=== PATIENT | female | born 1945 | race Caucasian/White ===

== ENCOUNTER 2018-04-23 21:21 | Inpatient (IN) | payer MEDICARE, MEDICAID ==
[2018-04-23 22:27] LABS: ABSOLUTE LYMPHOCYTES (AUTO) 1.4 10^3/uL (0.5-4.7); ABSOLUTE MONOCYTES (AUTO) 0.9 10^3/uL (0.1-1.4); ABSOLUTE NEUT (AUTO) 13.4 10^3/uL (1.7-8.2); BASOPHILS % (AUTO) 0.3 % (0-2); EOSINOPHILS % (AUTO) 0.2 % (0-6); HEMATOCRIT 47.8 % (36.0-47.0); HEMOGLOBIN 16.2 g/dL (12.0-15.5); LYMPHOCYTES % (AUTO) 8.9 % (13-45); MEAN CORPUSCULAR HEMOGLOBIN 30.3 pg (27.0-33.4); MEAN CORPUSCULAR VOLUME 89 fl (80-97); MONOCYTES % (AUTO) 5.5 % (3-13); PLATELET COUNT 236 10^3/uL (150-450); RED BLOOD COUNT 5.37 10^6/uL (3.72-5.28); RED CELL DISTRIBUTION WIDTH 13.5 % (11.5-14.0); SEGMENTED NEUTROPHILS % (AUTO) 85.1 % (42-78); TOTAL CELLS COUNTED % (AUTO) 100 %; WHITE BLOOD COUNT 15.8 10^3/uL (4.0-10.5)
[2018-04-23 22:40] LABS: ALANINE AMINOTRANSFERASE 26 U/L (9-52); ALBUMIN 4.9 g/dL (3.5-5.0); ALKALINE PHOSPHATASE 72 U/L (38-126); ANION GAP 19 (5-19); ASPARTATE AMINO TRANSFERASE 24 U/L (14-36); BILIRUBIN,DIRECT 0.6 mg/dL (0.0-0.4); BLOOD UREA NITROGEN 24 mg/dL (7-20); CALCIUM 10.3 mg/dL (8.4-10.2); CARBON DIOXIDE 25 mmol/L (22-30); CHLORIDE 103 mmol/L (98-107); GLUCOSE 143 mg/dL (75-110); LIPASE 73.9 U/L (23-300); POTASSIUM 4.4 mmol/L (3.6-5.0); SODIUM 146.9 mmol/L (137-145); TOTAL PROTEIN 8.5 g/dL (6.3-8.2)
[2018-04-23] MEDS ORDERED: PROMETHAZINE HCL INJ 25 MG/1 ML VIAL IV ONE (23:33)
[2018-04-23] MEDS ORDERED: HYDROMORPHONE HCL INJ/PF 2 MG/ML AMPULE IV ONE (23:37)
--- NOTE | 2018-04-23 23:41 | ER Document Report ---
ED General - General Chief Complaint: Nausea/Vomiting Stated Complaint: VOMITING Time Seen by Provider: 04/23/18 23:36 TRAVEL OUTSIDE OF THE [place] IN LAST 30 DAYS: No - HPI Notes: 73-year-old female who presents with left-sided flank abdominal pain. Patient somewhat poor historian but indicates sometime around lunchtime she began to have nausea and vomited several times also developed left flank and left mid abdominal pain that radiates around to her right mid quadrant. No fever, chills or sweats. Sharp and severe pain at times. Continued nausea and vomiting. Sudden onset. No fever. No blood in her stool or vomitus. No diarrhea. No other modifying factors, no other associated symptoms, no other provocative or palliative factors. - Related Data Allergies/Adverse Reactions: No Known Allergies Allergy (Unverified 04/23/18 21:32) Past Medical History - Social History Smoking Status: Never Smoker Chew tobacco use (# tins/day): Yes - everyday Frequency of alcohol use: None Drug Abuse: None Family History: Reviewed & Not Pertinent Patient has suicidal ideation: No Patient has homicidal ideation: No - Medical History Notes: Reviewed, includes hypertension, thyroid disease Renal/ Medical History: Denies: Hx Peritoneal Dialysis Review of Systems - Review of Systems Notes: Review of systems as in the history of present illness, otherwise negative. Physical Exam - Vital signs Vitals: Temp Pulse BP Pulse Ox 98.4 F 88 178/91 H 98 04/23/18 22:05 04/23/18 22:05 04/23/18 22:05 04/23/18 22:05 - Notes Notes: General: Well developed . Moderate distress HEENT: Normocephalic, atraumatic. Pupils equal round reactive to light. No JVD. Dry mucosa Chest: No trauma. Respiratory: Good air exchange, normal excursion. Cardiac: Regular rhythm. No murmurs or gallops. Abdomen: Soft, mild left mid quadrant tenderness. Back: No asymmetry or gross abnormality. Motor: Grossly normal power and tone. Neurologic: Alert, nonfocal. Cranial nerves II-12 are intact. Sensation intact. Vascular: Well perfused. Normal peripheral pulses. Skin: No petechiae or purpura. Course - Re-evaluation Re-evalutation: 04/23/18 23:40 Elderly female who presents with abdominal and flank pain and vomiting. Consider Renal colic, diverticulitis, less likely abdominal ischemia. May be viral illness. May be cardiac or metabolic. Plan proceed with basic labs, fluids, antiemetics and analgesics, CT, reassess. 04/24/18 02:55 Labs reviewed, mild leukocytosis is noted. Urine is pending. Chemistries unremarkable. CT imaging shows a small distal ureteral stone on the left. Patient is resting comfortably. However, she has had some desaturation is now requiring oxygen via nasal cannula. On reexamination she shows some diffuse crackles bilaterally. Chest x-ray shows pulmonary vascular congestion but no significant cardiomegaly. This point we are going to let the patient's medications wear off, treat with supplemental oxygen and some additional IV Lasix. She will likely be able to be discharged in a few hours. 04/24/18 02:55 - Vital Signs Vital signs: Temp Pulse Resp BP Pulse Ox 98.4 F 88 121/66 91 L 04/23/18 22:05 04/23/18 22:05 04/24/18 01:01 04/24/18 01:02 - Laboratory Result Diagrams: 04/23/18 22:18 04/23/18 22:18 Laboratory results interpreted by me: 04/23/18 04/23/18 04/23/18 22:18 22:18 22:18 WBC 15.8 H RBC 5.37 H Hgb 16.2 H Hct 47.8 H Seg Neutrophils % 85.1 H Lymphocytes % 8.9 L Absolute Neutrophils 13.4 H PT 16.9 H Sodium 146.9 H BUN 24 H Glucose 143 H Calcium 10.3 H Direct Bilirubin 0.6 H Total Protein 8.5 H Urine Protein Urine Glucose (UA) Urine Ketones Urine Blood Urine Urobilinogen 04/24/18 02:58 WBC RBC Hgb Hct Seg Neutrophils % Lymphocytes % Absolute Neutrophils PT Sodium BUN Glucose Calcium Direct Bilirubin Total Protein Urine Protein 100 H Urine Glucose (UA) 50 H Urine Ketones 20 H Urine Blood LARGE H Urine Urobilinogen 2.0 H Discharge - Discharge Clinical Impression: Kidney stone Condition: Stable Disposition: HOME, SELF-CARE Instructions: Kidney Stone ([facility]) Prescriptions: Hydrocodone Bit/Acetaminophen [Hydrocodon-Acetaminophen 5-325] 1 each PO Q6 #12 tablet Ondansetron [Zofran Odt 4 mg Tablet] 1 - 2 tab PO Q4H PRN #15 tab.rapdis PRN Reason: For Nausea/Vomiting Referrals: DEREK LAWRENCE MD [Primary Care Provider] - Follow up as needed
[2018-04-23 23:49] LABS: INTERNATIONAL RATION (INR) 1.31; PROTHROMBIN TIME 16.9 SEC (11.4-15.4)
--- NOTE | 2018-04-24 02:01 | RADIOLOGY REPORT (SQ) ---
EXAM DESCRIPTION: CT ABDOMEN PELVIS WITH IV CONTRAST CLINICAL HISTORY: 73 years Female, Severe left flan flank and abd pain Comparison: None. Technique: IV contrast. Coronal and sagittal reformat. This exam was performed according to our departmental dose-optimization program, which includes automated exposure control, adjustment of the mA and/or kV according to patient size and/or use of iterative reconstruction technique.[facility]: Dose Right [facility]: CareDose [facility]: Dose Right [facility]: Teradose 4D [facility]: WyzeTalk LIMITATIONS: None. Findings: 0.5 cm left distal ureteral stone at the S3 level with moderate left hydronephrosis-hydroureter. Atherosclerosis. Cardiac leads. Coarse calcification associated with the cardiac, calcification and thinning of the left ventricular apex. Likely benign 1.2 cm low-attenuation right hepatic lesion. Gallstone. Likely benign 4.6 cm exophytic left renal cyst. Partially duplicated right renal collecting system. Normal appendix. No free fluid. Mild disc desiccation and spondylosis. Inferior thorax, pancreas, spleen, adrenals, gastrointestinal tract, pelvic organs, lymphatics, vasculature, and musculoskeleton appear otherwise unremarkable. IMPRESSION: 0.5 cm right distal ureteral stone with low grade obstruction.
--- NOTE | 2018-04-24 02:19 | RADIOLOGY REPORT (SQ) ---
EXAM DESCRIPTION: XR CHEST 1 VIEW CLINICAL HISTORY: 73 years Female, DYSPNEA COMPARISON: None. NUMBER OF VIEWS/TECHNIQUE: 1/AP FINDINGS: Adequate lung volume, pulmonary vascular congestion, normal cardiac silhouette, atherosclerosis, and intact bony thorax. Left cardiac stimulator with leads. IMPRESSION: Pulmonary vascular congestion.
[2018-04-24] MEDS ORDERED: FUROSEMIDE INJ/PF 40 MG/4 ML SDV IV ONE (02:48)
[2018-04-24 03:28] LABS: APPEARANCE,URINE SLIGHTLY-CLOUDY; BILIRUBIN,URINE NEGATIVE (NEGATIVE); COLOR,URINE YELLOW; GLUCOSE, URINE 50 mg/dL (NEGATIVE); KETONES,URINE 20 mg/dL (NEGATIVE); LEUKOCYTE ESTERASE,URINE NEGATIVE (NEGATIVE); NITRITE,URINE NEGATIVE (NEGATIVE); PROTEIN,URINE 100 mg/dL (NEGATIVE); URINE SPECIFIC GRAVITY 1.046
[2018-04-24] MEDS ORDERED: CEFTRIAXONE INJ 1000 MG VIAL IV ONE (05:47)
--- NOTE | 2018-04-24 07:20 | EKG REPORT ---
SEVERITY:- ABNORMAL ECG - SINUS RHYTHM NONSPECIFIC T ABNORMALITIES, LATERAL LEADS BORDERLINE PROLONGED QT INTERVAL : Confirmed by: Santi Johnson MD 24-Apr-2018 07:19:01
[2018-04-24] MEDS ORDERED: FENTANYL CITRATE INJ/PF 100 MCG/2 ML AMPUL ONE (08:58)
[2018-04-24] MEDS ORDERED: EPHEDRINE SULFATE INJ 50 MG/1 ML AMPULE ONE (08:58)
[2018-04-24] MEDS ORDERED: MIDAZOLAM 2 MG/2 ML INJ ONE (08:58)
[2018-04-24] MEDS ORDERED: PROPOFOL INJ 200 MG/20 ML VIAL IV ONE (08:59)
[2018-04-24] MEDS ORDERED: ALBUTEROL SULFATE 0.083% NEB 2.5 MG/3 ML AMPUL NEB PRN (09:07)
[2018-04-24] MEDS ORDERED: NORMAL SALINE 1000 ML 1,000 ML IV PRN ×3 (09:07→15:24)
[2018-04-24] MEDS ORDERED: ACETAMINOPHEN 325 MG TABLET PO PRN (09:07)
[2018-04-24] MEDS ORDERED: PROMETHAZINE HCL INJ 25 MG/1 ML VIAL IV PRN (09:13)
[2018-04-24] MEDS ORDERED: GLUCAGON,HUMAN RECOMB 1 MG INJ SUBCUT PRN (09:13)
[2018-04-24] MEDS ORDERED: MAG HYDROX/AL HYDROX/SIMETH SUSP 30 ML UDCUP PO PRN (09:13)
[2018-04-24] MEDS ORDERED: DEXTROSE 40% GEL 15 GM TUBE PO PRN ×2 (09:13)
[2018-04-24] MEDS ORDERED: DEXTROSE 50%-WATER 25 GM/50 ML DISP.SYRIN IV PRN ×2 (09:13)
[2018-04-24] MEDS ORDERED: KETOROLAC TROMETHAMINE INJ/PF 30 MG/1 ML SDV IV PRN (09:16)
[2018-04-24] MEDS ORDERED: OXYCODONE HCL IR 5 MG TABLET PO PRN (09:17)
[2018-04-24] MEDS ORDERED: LIDOCAINE 2% URO-JET 5 ML KIT ONE (09:39)
--- NOTE | 2018-04-24 10:59 | Operative Report ---
Operative Report DATE OF SURGERY: 04/24/18 Operative Report: Cystoscopy with placement of left ureteral stent and ureteroscopy with stent manipulation PREOPERATIVE DIAGNOSIS: Left mid ureteral stone with hydronephrosis POSTOPERATIVE DIAGNOSIS: Same OPERATION: Cystoscopy, placement of left ureteral stent, ureteroscopy and stent manipulation SURGEON: MACK LEON II ANESTHESIA: LMAC TISSUE REMOVED OR ALTERED: 0.8, 24 cm double-pigtail ureteral stent placed on the left PROCEDURE: The patient was taken to the operating room and placed into the supine position on the cystoscopy table. After adequate MAC anesthesia, she was placed into the lithotomy position and prepped and draped in the usual sterile fashion. Cystoscopy was carried out with a 23 [place] panendoscope in the left ureteral orifice visualized. The orifice was cannulated with a 0.035 sensor wire and advanced under fluoroscopic guidance into the left renal pelvis. A 4.824 cm double-pigtail stent was then placed over the wire and positioned in the left kidney. The stent was seen to curl in the upper pole calyx. There was a curl in the bladder and the Glidewire was then removed. As the bladder was drained it was noted that the stent retracted up into the distal ureter and the coil in the upper ureter was seen to be propelled cephalad. The stent grasper was not able to be placed in order to grasp the stent before it migrated into the distal ureter. Subsequently the ACMI ureteroscope was used to ureteroscope the distal ureter and the stent was visualized. It was grasped with a stone basket and under fluoroscopic guidance the stent was then manipulated into the renal pelvis proximally with a longer coiled within the bladder. The scope was removed and the stent stayed in place. The patient was returned to PACU in satisfactory condition. She tolerated procedure well.
--- NOTE | 2018-04-24 11:24 | RADIOLOGY REPORT (SQ) ---
EXAM DESCRIPTION: PYELOGRAM RETROGRADE COMPLETED DATE/TIME: 04/24/2018 11:11 am REASON FOR STUDY: LT STENT PLACEMENT I50.9 HEART FAILURE, UNSPECIFIED N13.30 UNSPECIFIED HYDRONEPH ROSIS COMPARISON: None. FLUOROSCOPY TIME: 2.38 seconds 1 images saved to PACS. TECHNIQUE: Intra-operative images acquired during surgical procedure to evaluate progress. NUMBER OF IMAGES: 1 LIMITATIONS: None. FINDINGS: An image obtained from fluoro shows a catheter in the left ureter with contrast injected. No definite intraluminal filling defect is seen. IMPRESSION: Retrograde pyelogram. Refer to operative note for further information. COMMENT: Quality ID [id number]: Final reports for procedures using fluoroscopy that document radiation exp osure indices, or exposure time and number of fluorographic images (if radiation exposure indices are not available) Please consult full operative report of the attending physician for description of the procedure. TECHNICAL DOCUMENTATION: JOB ID: [id number] [email or web address]- All Rights Reserved Reading location - IP/workstation name: [email or web address]
[2018-04-24] MEDS ORDERED: LIDOCAINE 2% INJ-PF (20 MG/ML) 2 ML AMPUL ONE (12:49)
[2018-04-24] MEDS ORDERED: INSULIN LISPRO 100 UNIT/ML 3 ML VIAL SUBCUT PRN (14:54)
--- NOTE | 2018-04-24 15:25 | PDOC H&P ---
History of Present Illness Admission Date/PCP: 04/24/18 06:22 DEREK LAWRENCE MD Patient complains of: Left flank pain History of Present Illness: AKILAH COONEY is a 73 year old female, who is a poor historian, but is able to confirm a past medical history of NC in 2006 with stents, pacemaker/AICD, hyperlipidemia and type 2 diabetes mellitus. Review of all medications suggest that she also has hypertension, hypothyroidism, GERD, and perhapse PAF (on ASA, coumadin, and BB therapy). Home medications, by report, include Coumadin, however, the patient is sub-therapeutic with an INR of 1.31 and the patient is unable to tell me if or why she would be on chronic anticoagulant therapy. The patient presented to the emergency room overnight with a complaint of sudden onset left flank pain radiating to her groin and associated with nausea and vomiting. Evaluation in the emergency department revealed WBC 15.8, hypernatremia with a sodium 146.9, elevated BUN at 24, urinalysis revealed UTI, pulmonary vascular congestion by chest x-ray, and a 5 mm distal left ureteral calculus causing moderate left hydronephrosis and hydroureter. Dr. Botello, urology, plans to place a ureteral stent this morning. She is referred to the hospitalist service for admission and management of urinary tract infection with hydronephrosis secondary to renal stone. Past Medical History Cardiac Medical History: Reports: Congestive Heart Failure, Myocardial Infarction, Hyperlipidema, Hypertension Pulmonary Medical History: Denies: Asthma, Chronic Obstructive Pulmonary Disease (COPD) EENT Medical History: Reports: None Neurological Medical History: Denies: Hemorrhagic CVA, Ischemic CVA Endocrine Medical History: Reports: Diabetes Mellitus Type 1, Hypothyroidism Renal/ Medical History: Denies: Chronic Kidney Disease, Nephrolithiasis Malignancy Medical History: Reports: None GI Medical History: Reports: Gastroesophageal Reflux Disease Musculoskeltal Medical History: Reports: None Skin Medical History: Reports: None Psychiatric Medical History: Reports: Tobacco Dependency Traumatic Medical History: Reports: None Hematology: Denies: Anemia Infectious Medical History: Reports: None Past Surgical History Past Surgical History: Reports: Section, Internal Defibrillator, Pacemaker Social History Information Source: Patient Smoking Status: Never Smoker Frequency of Alcohol Use: None Hx Recreational Drug Use: No Hx Prescription Drug Abuse: No - Advance Directive Resuscitation Status: Full Code Family History Family History: Patient was unable to recall family medical history. Parental Family History Reviewed: No - Pt can not recall family MHx Children Family History Reviewed: No Sibling(s) Family History Reviewed.: No Medication/Allergy Home Medications: Aspirin [Aspirin EC] 81 mg PO DAILY 04/24/18 Esomeprazole Magnesium [Nexium] 40 mg PO DAILY 04/24/18 Latanoprost [Xalatan] 1 drop OU QHS 04/24/18 Levothyroxine Sodium [Synthroid 50 Mcg Tablet] 50 mcg PO QAM 04/24/18 Metformin HCl [Metformin HCl ER] 500 mg PO DAILY 04/24/18 Metoprolol Tartrate [Lopressor 25 mg Tablet] 25 mg PO Q12 04/24/18 Montelukast Sodium [Singulair 10 mg Tablet] 10 mg PO DAILY 04/24/18 Multivit/Folic Acid/Vit K1 [One-A-Day Women's 50 Plus Tab] 1 each PO DAILY 04/24 Oxybutynin Chloride [Oxybutynin Chloride ER] 10 mg PO DAILY 04/24/18 Potassium Chloride [Klor-Con M20] 20 meq PO DAILY 04/24/18 Simvastatin [Zocor 40 mg Tablet] 40 mg PO QHS 04/24/18 Valsartan/Hydrochlorothiazide [Valsartan-Hctz 160-25 mg Tab] 1 each PO DAILY Warfarin Sodium [Coumadin 1 mg Tablet] 3 mg PO TUTHSA@1000 04/24/18 Warfarin Sodium [Coumadin 1 mg Tablet] 4 mg PO SUMOWEFR@1000 04/24/18 Allergies/Adverse Reactions: No Known Allergies Allergy (Unverified 04/23/18 21:32) Review of Systems Constitutional: ABSENT: chills, fever(s), headache(s), weight gain, weight loss Eyes: ABSENT: visual disturbances Ears: ABSENT: hearing changes Cardiovascular: ABSENT: chest pain, dyspnea on exertion, edema, orthropnea, palpitations Respiratory: ABSENT: cough, hemoptysis Gastrointestinal: PRESENT: abdominal pain - Left flank pain, nausea, vomiting. ABSENT: constipation, diarrhea, hematemesis, hematochezia Genitourinary: ABSENT: difficulty urinating, dysuria, hematuria Musculoskeletal: ABSENT: joint swelling Integumentary: ABSENT: rash, wounds Neurological: ABSENT: abnormal gait, abnormal speech, confusion, dizziness, focal weakness, syncope Psychiatric: ABSENT: anxiety, depression, homidical ideation, suicidal ideation Endocrine: ABSENT: cold intolerance, heat intolerance, polydipsia, polyuria Hematologic/Lymphatic: ABSENT: easy bleeding, easy bruising Physical Exam Vital Signs: Temp Pulse Resp BP Pulse Ox 98.9 F 88 150/89 H 94 04/24/18 06:27 04/23/18 22:05 04/24/18 06:00 04/24/18 08:00 General appearance: PRESENT: no acute distress, well-developed, well-nourished, other - Overweight Head exam: PRESENT: atraumatic, normocephalic Eye exam: PRESENT: conjunctiva pink, EOMI, PERRLA. ABSENT: scleral icterus Ear exam: PRESENT: normal external ear exam Mouth exam: PRESENT: moist, tongue midline Neck exam: ABSENT: carotid bruit, JVD, lymphadenopathy, thyromegaly Respiratory exam: PRESENT: clear to auscultation jonathan, symmetrical, unlabored, other - Supplemental oxygen via nasal cannula. ABSENT: rales, rhonchi, wheezes Cardiovascular exam: PRESENT: RRR, +S1, +S2. ABSENT: diastolic murmur, rubs, systolic murmur Pulses: PRESENT: normal dorsalis pedis pul Vascular exam: PRESENT: normal capillary refill GI/Abdominal exam: PRESENT: normal bowel sounds, soft. ABSENT: distended, guarding, mass, organolmegaly, rebound, tenderness Rectal exam: PRESENT: deferred Extremities exam: PRESENT: full ROM. ABSENT: calf tenderness, clubbing, pedal edema Neurological exam: PRESENT: alert, awake, oriented to person, oriented to place , oriented to time, oriented to situation, CN II-XII grossly intact, other - Forgetful, poor historian, fatigue. ABSENT: motor sensory deficit Psychiatric exam: PRESENT: appropriate affect, normal mood. ABSENT: homicidal ideation, suicidal ideation Skin exam: PRESENT: dry, intact, warm. ABSENT: cyanosis, rash Results Impressions: Abdomen/Pelvis CT 04/24/18 00:00 IMPRESSION: 0.5 cm right distal ureteral stone with low grade obstruction. Chest X-Ray 04/24/18 01:42 IMPRESSION: Pulmonary vascular congestion. Assessment & Plan - Diagnosis (1) Hydronephrosis concurrent with and due to calculi of kidney and ureter Is this a current diagnosis for this admission?: Yes Plan: The patient presented to the emergency department with left flank pain, nausea and vomiting. CT of the abdomen and pelvis revealed a 5 mm distal ureteral stone with moderate left hydronephrosis and hydroureter. Primary plan per urology; Dr. Botello has been contacted by the emergency department provider. He plans to place ureter stent today. The patient received Dilaudid and Phenergan per ED provider and subsequently developed hypoxia on room air requiring supplemental oxygen by nasal cannula. Therefore, will hold on further IV narcotic pain medications. IV Toradol and oxycodone as needed for pain. Zofran ODT and IV Phenergan for nausea. (2) UTI (urinary tract infection) Qualifiers: Urinary tract infection type: site unspecified Hematuria presence: with hematuria Qualified Code(s): N39.0 - Urinary tract infection, site not specified; R31.9 - Hematuria, unspecified; R31.9 - Hematuria, unspecified Is this a current diagnosis for this admission?: Yes Plan: Patient denies symptoms of urinary urgency, frequency, hesitancy, dysuria, gross hematuria. She presented with left flank pain and nausea and vomiting. Urinalysis revealed UTI. WBCs are 15.8. The patient remains afebrile. Urine culture is pending. She is provided IV Rocephin; will adjust as sensitivities result. Will provide gentle IVF; monitor closely for evidence of fluid volume overload is I am suspicious that the patient may have a history of CHF (vascular congestion by chest x-ray, elevated proBNP, reported home medications). (3) Hypertension Is this a current diagnosis for this admission?: Yes Plan: We will continue the patient's home medications; metoprolol 25 mg twice daily and valsartan/hydrochlorothiazide 160-25 daily. (4) Diabetes mellitus Qualifiers: Diabetes mellitus type: type 2 Is this a current diagnosis for this admission?: Yes Plan: We will hold the patient's metformin while inpatient. Accu-Cheks before meals and at bedtime with Humalog for sliding scale coverage. Advanced to a consistent carb diet when approved by urology. (5) Coronary artery disease Is this a current diagnosis for this admission?: Yes Plan: Continue daily aspirin and statin therapy. Antihypertensives as above. We will need to discuss with the patient and/or family members the report of Coumadin therapy. - Time Time Spent: 50 to 70 Minutes Medications reviewed and adjusted accordingly: Yes Anticipated discharge: Home
[2018-04-24] MEDS: FAMOTIDINE 20 MG TABLET PO SCH ×2 (15:51→21:55)
[2018-04-24] MEDS: HEPARIN SOD (PORCINE) 5,000 UNIT/ML 1 ML SYRINGE SUBCUT SCH ×2 (15:55→21:55)
[2018-04-24] MEDS: METOPROLOL TARTRATE 25 MG TABLET PO SCH (21:55)
[2018-04-24] MEDS: SIMVASTATIN 40 MG TABLET PO SCH (21:55)
[2018-04-24] MEDS: LATANOPROST 0.005% OPH SOLN 2.5 ML OU SCH (21:55)
[2018-04-25] MEDS: HEPARIN SOD (PORCINE) 5,000 UNIT/ML 1 ML SYRINGE SUBCUT SCH ×2 (05:27→13:41)
[2018-04-25] MEDS: LANSOPRAZOLE 30 MG TAB.RAP.DR PO SCH (05:27)
[2018-04-25 06:55] LABS: ABSOLUTE EOSINOPHILS # (AUTO) 0.1 10^3/uL (0.0-0.6); ABSOLUTE LYMPHOCYTES (AUTO) 2.2 10^3/uL (0.5-4.7); ABSOLUTE MONOCYTES (AUTO) 0.8 10^3/uL (0.1-1.4); ABSOLUTE NEUT (AUTO) 6.2 10^3/uL (1.7-8.2); BASOPHILS % (AUTO) 0.4 % (0-2); EOSINOPHILS % (AUTO) 0.6 % (0-6); HEMATOCRIT 42.3 % (36.0-47.0); HEMOGLOBIN 14.6 g/dL (12.0-15.5); LYMPHOCYTES % (AUTO) 23.8 % (13-45); MEAN CORPUSCULAR HEMOGLOBIN 30.6 pg (27.0-33.4); MEAN CORPUSCULAR HGB CONC 34.6 g/dL (32.0-36.0); MEAN CORPUSCULAR VOLUME 88 fl (80-97); MONOCYTES % (AUTO) 8.4 % (3-13); PLATELET COUNT 194 10^3/uL (150-450); RED BLOOD COUNT 4.79 10^6/uL (3.72-5.28); RED CELL DISTRIBUTION WIDTH 13.4 % (11.5-14.0); SEGMENTED NEUTROPHILS % (AUTO) 66.8 % (42-78); TOTAL CELLS COUNTED % (AUTO) 100 %; WHITE BLOOD COUNT 9.3 10^3/uL (4.0-10.5)
[2018-04-25 07:08] LABS: ANION GAP 14 (5-19); BLOOD UREA NITROGEN 24 mg/dL (7-20); CALCIUM 9.5 mg/dL (8.4-10.2); CARBON DIOXIDE 27 mmol/L (22-30); CHLORIDE 106 mmol/L (98-107); GLUCOSE 138 mg/dL (75-110); POTASSIUM 3.4 mmol/L (3.6-5.0); SODIUM 146.6 mmol/L (137-145)
[2018-04-25] MEDS ORDERED: NORMAL SALINE 1000 ML 1,000 ML IV PRN (07:47)
[2018-04-25] MEDS: LEVOTHYROXINE SODIUM 0.05 MG TABLET PO SCH (08:25)
[2018-04-25] MEDS ORDERED: (PENDING PHARMACY ID) (Potassium Chloride [Klor-Con M20] 20 MEQ) PO SCH (10:00)
[2018-04-25] MEDS ORDERED: (PENDING PHARMACY ID) (Multivit/Folic Acid/Vit K1 [One-A-Day Women's 50 Plus Tab] 1 EACH) PO SCH (10:00)
[2018-04-25] MEDS ORDERED: (PENDING PHARMACY ID) (Valsartan/Hydrochlorothiazide [Valsartan-Hctz 160-25 Mg Tab] 1 EACH PO SCH (10:00)
[2018-04-25] MEDS: ASPIRIN 81 MG TABLET, ENT COATED PO SCH (10:11)
[2018-04-25] MEDS: VALSARTAN 160 MG TABLET PO SCH (10:11)
[2018-04-25] MEDS: POTASSIUM CHLORIDE 10 MEQ TABLET.SA PO SCH (10:11)
[2018-04-25] MEDS: FAMOTIDINE 20 MG TABLET PO SCH ×2 (10:11→21:29)
[2018-04-25] MEDS: MONTELUKAST SODIUM 10 MG TABLET PO SCH (10:12)
[2018-04-25] MEDS: MULTIVITAMIN TABLET PO SCH (10:12)
[2018-04-25] MEDS: METOPROLOL TARTRATE 25 MG TABLET PO SCH ×2 (10:12→21:29)
[2018-04-25] MEDS: CEFTRIAXONE SODIUM 1,000 MG in DEXTROSE 5%-WATER 50 ML IV SCH (10:12)
[2018-04-25] MEDS: HYDROCHLOROTHIAZIDE 25 MG TABLET PO SCH (10:12)
--- NOTE | 2018-04-25 13:59 | PDOC PROGRESS REPORT ---
Subjective Progress Note for:: 04/25/18 Subjective:: The patient is a 73-year-old female, who is a poor historian, but is able to confirm past medical history of CA in 2007 with stents, pacemaker/AICD, hyperlipidemia and type 2 diabetes mellitus. Review of all medications suggest that she also has hypertension, hypothyroidism, GERD, and perhaps PAF and CHF ( on aspirin, Coumadin, beta-aashish therapy, losartan/hydrochlorthiazide) who was admitted on 04/24/18 for complicated urinary tract infection with hydronephrosis secondary to a renal stone. She is seen on morning rounds. She is found in bed resting comfortably on room air. She reports that she is feeling well today; her flank pain, nausea and vomiting have all resolved. She denies fever, chills, chest pain, palpitations , dyspnea, abdominal pain, nausea vomiting diarrhea, urinary urgency frequency and dysuria. She has no questions or concerns at this time. Reason For Visit: HYDRONEPHROSIS,KIDNEY STONE Physical Exam Vital Signs: Temp Pulse Resp BP Pulse Ox 98.0 F 60 16 101/57 L 97 04/25/18 11:09 04/25/18 11:09 04/25/18 11:09 04/25/18 11:09 04/25/18 11:09 Intake & Output 04/24/18 04/25/18 04/26/18 06:59 06:59 06:59 Intake Total 800 Output Total 250 Balance 550 Weight 68.9 kg General appearance: PRESENT: no acute distress, well-developed, well-nourished, other - overweight Head exam: PRESENT: atraumatic, normocephalic Eye exam: PRESENT: conjunctiva pink, EOMI, PERRLA. ABSENT: scleral icterus Ear exam: PRESENT: normal external ear exam Mouth exam: PRESENT: moist, tongue midline Neck exam: ABSENT: carotid bruit, JVD, lymphadenopathy, thyromegaly Respiratory exam: PRESENT: clear to auscultation jonathan, symmetrical, unlabored. ABSENT: rales, rhonchi, wheezes Cardiovascular exam: PRESENT: RRR. ABSENT: diastolic murmur, rubs, systolic murmur Pulses: PRESENT: normal dorsalis pedis pul Vascular exam: PRESENT: normal capillary refill GI/Abdominal exam: PRESENT: normal bowel sounds, soft. ABSENT: distended, guarding, mass, organolmegaly, rebound, tenderness Rectal exam: PRESENT: deferred Extremities exam: PRESENT: full ROM. ABSENT: calf tenderness, clubbing, pedal edema Neurological exam: PRESENT: alert, awake, oriented to person, oriented to place , oriented to time, oriented to situation, CN II-XII grossly intact. ABSENT: motor sensory deficit Psychiatric exam: PRESENT: appropriate affect, normal mood. ABSENT: homicidal ideation, suicidal ideation Skin exam: PRESENT: dry, intact, warm. ABSENT: cyanosis, rash Results Laboratory Results: 04/25/18 06:33 04/25/18 06:33 04/25/18 04/25/18 06:33 06:33 WBC 9.3 RBC 4.79 Hgb 14.6 Hct 42.3 MCV 88 MCH 30.6 MCHC 34.6 RDW 13.4 Plt Count 194 Seg Neutrophils % 66.8 Lymphocytes % 23.8 Monocytes % 8.4 Eosinophils % 0.6 Basophils % 0.4 Absolute Neutrophils 6.2 Absolute Lymphocytes 2.2 Absolute Monocytes 0.8 Absolute Eosinophils 0.1 Absolute Basophils 0.0 Sodium 146.6 H Potassium 3.4 L Chloride 106 Carbon Dioxide 27 Anion Gap 14 BUN 24 H Creatinine 0.76 Est GFR ( Amer) > 60 Est GFR (Non-Af Amer) > 60 Glucose 138 H Calcium 9.5 Impressions: Abdomen/Pelvis CT 04/24/18 00:00 IMPRESSION: 0.5 cm right distal ureteral stone with low grade obstruction. Chest X-Ray 04/24/18 01:42 IMPRESSION: Pulmonary vascular congestion. Retrograde Pyelogram 04/24/18 10:00 IMPRESSION: Retrograde pyelogram. Refer to operative note for further information. Assessment & Plan - Diagnosis (1) Hydronephrosis concurrent with and due to calculi of kidney and ureter Is this a current diagnosis for this admission?: Yes Plan: Now status post ureteral stent placement. CT of the abdomen and pelvis revealed a 5 mm distal ureteral stone with moderate left hydronephrosis and hydroureter. Urology has been consulted; appreciate their evaluation recommendations. Tylenol and oxycodone as needed for pain. Zofran ODT and IV Phenergan for nausea. (2) UTI (urinary tract infection) Qualifiers: Urinary tract infection type: site unspecified Hematuria presence: with hematuria Qualified Code(s): N39.0 - Urinary tract infection, site not specified; R31.9 - Hematuria, unspecified; R31.9 - Hematuria, unspecified Is this a current diagnosis for this admission?: Yes Plan: Improved. Complicated urinary tract infection secondary to renal stone and hydronephrosis. Urinalysis revealed UTI. WBCs are 15.8. The patient remains afebrile. Urine culture is pending. The patient received 1 dose of IV Rocephin in the emergency department. IV Rocephin has been continued; day #2. Will provide gentle IVF; monitor closely for evidence of fluid volume overload as the patient has a hx of CHF (3) Hypertension Is this a current diagnosis for this admission?: Yes Plan: Improved with continuation of the patient's home medications. Continue metoprolol 25 mg twice daily and valsartan/hydrochlorothiazide 160-25 daily. (4) Diabetes mellitus Qualifiers: Diabetes mellitus type: type 2 Is this a current diagnosis for this admission?: Yes Plan: We will hold the patient's metformin while inpatient. Accu-Cheks before meals and at bedtime with Humalog for sliding scale coverage. Consistent carb diet. (5) Coronary artery disease Is this a current diagnosis for this admission?: Yes Plan: Continue daily aspirin and statin therapy. Antihypertensives as above. (6) Chronic CHF (congestive heart failure) Qualifiers: Heart failure type: unspecified Qualified Code(s): I50.9 - Heart failure, unspecified Is this a current diagnosis for this admission?: Yes Plan: I spoke with the patient's daughter today; she confirms that her mother has an CA with stent, pacemaker/AICD, and CHF with an ejection fraction of 30%. She reports that the Coumadin therapy is a current medication related to her heart conditions. We will resume Coumadin PT/INR daily and adjust dose as needed. - Time Time Spent with patient: 15-24 minutes Medications reviewed and adjusted accordingly: Yes
[2018-04-25] MEDS ORDERED: WARFARIN SODIUM 5 MG TABLET PO ONE (14:30)
[2018-04-25 15:26] LABS: INTERNATIONAL RATION (INR) 1.23; PROTHROMBIN TIME 16.1 SEC (11.4-15.4)
[2018-04-25] MEDS: NORMAL SALINE 1000 ML 1,000 ML IV PRN (16:00)
[2018-04-25] MEDS: SIMVASTATIN 40 MG TABLET PO SCH (21:29)
[2018-04-25] MEDS: LATANOPROST 0.005% OPH SOLN 2.5 ML OU SCH (21:29)
[2018-04-26] MEDS: NORMAL SALINE 1000 ML 1,000 ML IV PRN (01:58)
[2018-04-26 05:35] LABS: HEMATOCRIT 40.7 % (36.0-47.0); HEMOGLOBIN 13.9 g/dL (12.0-15.5); MEAN CORPUSCULAR HEMOGLOBIN 30.1 pg (27.0-33.4); MEAN CORPUSCULAR HGB CONC 34.1 g/dL (32.0-36.0); MEAN CORPUSCULAR VOLUME 88 fl (80-97); PLATELET COUNT 185 10^3/uL (150-450); RED BLOOD COUNT 4.62 10^6/uL (3.72-5.28); WHITE BLOOD COUNT 8.7 10^3/uL (4.0-10.5)
[2018-04-26 05:38] LABS: INTERNATIONAL RATION (INR) 1.16; PROTHROMBIN TIME 15.4 SEC (11.4-15.4)
[2018-04-26] MEDS: LANSOPRAZOLE 30 MG TAB.RAP.DR PO SCH (06:13)
[2018-04-26 06:28] LABS: BLOOD UREA NITROGEN 19 mg/dL (7-20); CALCIUM 9.1 mg/dL (8.4-10.2); GLUCOSE 108 mg/dL (75-110)
[2018-04-26 06:29] LABS: ANION GAP 15 (5-19); CARBON DIOXIDE 23 mmol/L (22-30); CHLORIDE 109 mmol/L (98-107); POTASSIUM 3.4 mmol/L (3.6-5.0); SODIUM 146.8 mmol/L (137-145)
[2018-04-26] MEDS: LEVOTHYROXINE SODIUM 0.05 MG TABLET PO SCH (08:15)
[2018-04-26] MEDS ORDERED: (PENDING PHARMACY ID) (Warfarin Sodium 4 MG) PO SCH (10:00)
[2018-04-26] MEDS: CEFTRIAXONE SODIUM 1,000 MG in DEXTROSE 5%-WATER 50 ML IV SCH (10:16)
[2018-04-26] MEDS: FAMOTIDINE 20 MG TABLET PO SCH (10:18)
[2018-04-26] MEDS: POTASSIUM CHLORIDE 10 MEQ TABLET.SA PO SCH (10:18)
[2018-04-26] MEDS: VALSARTAN 160 MG TABLET PO SCH (10:19)
[2018-04-26] MEDS: HYDROCHLOROTHIAZIDE 25 MG TABLET PO SCH (10:19)
[2018-04-26] MEDS: METOPROLOL TARTRATE 25 MG TABLET PO SCH (10:19)
[2018-04-26] MEDS: MULTIVITAMIN TABLET PO SCH (10:20)
[2018-04-26] MEDS: MONTELUKAST SODIUM 10 MG TABLET PO SCH (10:20)
[2018-04-26] MEDS: ASPIRIN 81 MG TABLET, ENT COATED PO SCH (10:20)
[2018-04-26 11:01] VITALS: BP 135/69
--- NOTE | 2018-04-26 11:07 | PDOC DISCHARGE SUMMARY ---
General - Admit/Disc Date/PCP Admission Date/Primary Care Provider: 04/25/18 13:27 DEREK LAWRENCE MD Discharge Date: 04/26/18 - Discharge Diagnosis (1) Hydronephrosis concurrent with and due to calculi of kidney and ureter Is this a current diagnosis for this admission?: Yes Summary: Now status post left ureteral stent placement by Dr. Botello. The patient received 3 doses of IV Rocephin and is transitioned to p.o. Cipro 14 days. (2) UTI (urinary tract infection) Is this a current diagnosis for this admission?: Yes (3) Hypertension Is this a current diagnosis for this admission?: Yes Summary: The patient remained normotensive on her home medication regiment. (4) Diabetes mellitus Is this a current diagnosis for this admission?: Yes (5) Coronary artery disease Is this a current diagnosis for this admission?: Yes (6) Chronic CHF (congestive heart failure) Is this a current diagnosis for this admission?: Yes Summary: Stable and without exacerbation. Routine lab work reveals a proBNP of 1080. No evidence of fluid volume overload. - Additional Information Resuscitation Status: Full Code Discharge Diet: Cardiac, Diabetic Discharge Activity: Activity As Tolerated, Balance Activity w/Rest Prescriptions: Apixaban [Eliquis 5 mg Tablet] 5 mg PO BID #60 tablet Ciprofloxacin HCl [Cipro 500 mg Tablet] 500 mg PO BID #28 tablet Hydrocodone/Acetaminophen [Hydrocodon-Acetaminophen 5-325] 1 each PO Q6HP PRN # 12 tablet PRN Reason: Promethazine HCl [Phenergan 25 mg Tablet] 25 mg PO Q8HP PRN #9 tablet PRN Reason: Home Medications: Aspirin [Aspirin EC] 81 mg PO DAILY 04/24/18 Esomeprazole Magnesium [Nexium] 40 mg PO DAILY 04/24/18 Latanoprost [Xalatan] 1 drop OU QHS 04/24/18 Levothyroxine Sodium [Synthroid 0.05 mg Tablet] 50 mcg PO QAM 04/24/18 Metformin HCl [Metformin HCl ER] 500 mg PO DAILY 04/24/18 Metoprolol Tartrate [Lopressor 25 mg Tablet] 25 mg PO Q12 04/24/18 Montelukast Sodium [Singulair 10 mg Tablet] 10 mg PO DAILY 04/24/18 Multivit/Folic Acid/Vit K1 [One-A-Day Women's 50 Plus Tab] 1 each PO DAILY 04/24 Oxybutynin Chloride [Oxybutynin Chloride ER] 10 mg PO DAILY 04/24/18 Potassium Chloride [Klor-Con M20] 20 meq PO DAILY 04/24/18 Simvastatin [Zocor 40 mg Tablet] 40 mg PO QHS 04/24/18 Valsartan/Hydrochlorothiazide [Valsartan-Hctz 160-25 mg Tab] 1 each PO DAILY Acetaminophen [Tylenol 325 mg Tablet] 650 mg PO Q4HP PRN tablet 04/26/18 Apixaban [Eliquis 5 mg Tablet] 5 mg PO BID #60 tablet 04/26/18 Ciprofloxacin HCl [Cipro 500 mg Tablet] 500 mg PO BID #28 tablet 04/26/18 Hydrocodone/Acetaminophen [Hydrocodon-Acetaminophen 5-325] 1 each PO Q6HP PRN # 12 tablet 04/26/18 Promethazine HCl [Phenergan 25 mg Tablet] 25 mg PO Q8HP PRN #9 tablet 04/26/18 History of Present Illness History of Present Illness: AKILAH COONEY is a 73 year old female, who is a poor historian, but is able to confirm a past medical history of VT in 2006 with stents, pacemaker/AICD, hyperlipidemia and type 2 diabetes mellitus. Review of all medications suggest that she also has hypertension, hypothyroidism, GERD, and perhapse PAF (on ASA, coumadin, and BB therapy). Home medications, by report, include Coumadin, however, the patient is sub-therapeutic with an INR of 1.31 and the patient is unable to tell me if or why she would be on chronic anticoagulant therapy. The patient presented to the emergency room overnight with a complaint of sudden onset left flank pain radiating to her groin and associated with nausea and vomiting. Evaluation in the emergency department revealed WBC 15.8, hypernatremia with a sodium 146.9, elevated BUN at 24, urinalysis revealed UTI, pulmonary vascular congestion by chest x-ray, and a 5 mm distal left ureteral calculus causing moderate left hydronephrosis and hydroureter. Dr. Botello, urology, plans to place a ureteral stent this morning. She is referred to the hospitalist service for admission and management of urinary tract infection with hydronephrosis secondary to renal stone. Hospital Course Hospital Course: The patient presented to the emergency department on 04/23/18 with report of sudden onset left flank pain radiating to the groin associated with nausea and vomiting. Evaluation in the emergency department revealed mild leukocytosis with a white count of 12.[address] of the abdomen and pelvis demonstrating a 5 mm distal left ureter calculus with moderate hydronephrosis and hydroureter. She was provided IV narcotic pain medications and anti-emetics. She was supported with IV fluids and empirically placed on IV Rocephin. On 04/24/18, the patient underwent cystoscopy and ureteroscopy with placement of a left ureteral stent. Following stent placement, the patient's symptoms resolved. She remained on IV Rocephin for an additional 48 hours and during that time remained afebrile with a normal white blood cell count. The patient's home medications included Coumadin, PT/INR on admission was noted to be subtherapeutic at 1.31. Anticoagulant were held prior to her procedure. Following the stent placement, she did receive 1 dose of Coumadin 5 mg. However , following a discussion with the patient's family members regarding the frequent difficulty with maintaining within the therapeutic range, it was decided that the patient would better benefit from a DOAC. I discussed with both the patient and her daughter the risks and benefits of discontinuing Coumadin and beginning Eliquis therapy. They were agreeable to transitioning to Eliquis. At time of discharge, the patient is in stable condition, pain-free, tolerating a regular diet, and maintaining oxygen saturations on room air. She is instructed to follow-up with her primary care provider within 1 week and with the urology clinic in 1-2 weeks. She is provided prescriptions for Eliquis, ciprofloxacin 14 days, [place], and Phenergan Physical Exam Vital Signs: Temp Pulse Resp BP Pulse Ox 98.2 F 81 18 167/88 H 100 04/26/18 08:07 04/26/18 08:07 04/26/18 08:07 04/26/18 08:07 04/26/18 08:07 Intake & Output 04/25/18 04/26/18 04/27/18 06:59 06:59 06:59 Intake Total 1325 Balance 1325 Weight 69.7 kg General appearance: PRESENT: no acute distress, well-developed, well-nourished, other - Overweight Head exam: PRESENT: atraumatic, normocephalic Eye exam: PRESENT: conjunctiva pink, EOMI, PERRLA. ABSENT: scleral icterus Ear exam: PRESENT: normal external ear exam Mouth exam: PRESENT: moist, tongue midline Neck exam: ABSENT: carotid bruit, JVD, lymphadenopathy, thyromegaly Respiratory exam: PRESENT: clear to auscultation jonathan, symmetrical, unlabored. ABSENT: rales, rhonchi, wheezes Cardiovascular exam: PRESENT: RRR, +S1, +S2. ABSENT: diastolic murmur, rubs, systolic murmur Pulses: PRESENT: normal dorsalis pedis pul Vascular exam: PRESENT: normal capillary refill GI/Abdominal exam: PRESENT: normal bowel sounds, soft. ABSENT: distended, guarding, mass, organolmegaly, rebound, tenderness Rectal exam: PRESENT: deferred Extremities exam: PRESENT: full ROM. ABSENT: calf tenderness, clubbing, pedal edema Neurological exam: PRESENT: alert, awake, oriented to person, oriented to place , oriented to time, oriented to situation, CN II-XII grossly intact. ABSENT: motor sensory deficit Psychiatric exam: PRESENT: appropriate affect, normal mood. ABSENT: homicidal ideation, suicidal ideation Skin exam: PRESENT: dry, intact, warm. ABSENT: cyanosis, rash Results Laboratory Results: 04/26/18 04:43 04/26/18 04:43 04/26/18 04/26/18 04:43 04:43 WBC 8.7 RBC 4.62 Hgb 13.9 Hct 40.7 MCV 88 MCH 30.1 MCHC 34.1 RDW 13.0 Plt Count 185 Sodium 146.8 H Potassium 3.4 L Chloride 109 H Carbon Dioxide 23 Anion Gap 15 BUN 19 Creatinine 0.60 Est GFR ( Amer) > 60 Est GFR (Non-Af Amer) > 60 Glucose 108 Calcium 9.1 Impressions: Abdomen/Pelvis CT 04/24/18 00:00 IMPRESSION: 0.5 cm right distal ureteral stone with low grade obstruction. Chest X-Ray 04/24/18 01:42 IMPRESSION: Pulmonary vascular congestion. Retrograde Pyelogram 04/24/18 10:00 IMPRESSION: Retrograde pyelogram. Refer to operative note for further information. Qualifiers - * PATIENT BEING DISCHARGED WITH ANY OF THE FOLLOWING DIAGNOSIS: No Plan Discharge Plan: Discharge to home with self-care. Follow-up with primary care provider within 1 week; recommend repeat BMP at that time as the patient remained mildly hypernatremic during admission. Follow-up with urologist in 1-2 weeks.
[2018-04-26] MEDS ORDERED: WARFARIN SODIUM 4 MG TABLET PO SCH (22:00)
[2018-04-28] MEDS ORDERED: (PENDING PHARMACY ID) (Warfarin Sodium 3 MG) PO SCH (10:00)
[2018-04-28] MEDS ORDERED: WARFARIN SODIUM 3 MG TABLET PO SCH (22:00)
== END 2018-04-26 12:10 | disposition home or self-care (01) | DRG 690 ==
LOC: ER 21:21 → EH 04-24 06:22 → 4N 04-24 12:21 → OBSVTOIN 04-25 13:27
PROVIDERS: ADMIT Internal Medicine; ATTEND Internal Medicine
PROC: 3E0F73Z Introduction of Anti-inflammatory into Respiratory Tract, Via Natural or Artificial Opening (ICD-10-PCS; 2018-04-24)
PROC: 0T778DZ Dilation of Left Ureter with Intraluminal Device, Via Natural or Artificial Opening Endoscopic (ICD-10-PCS; principal; 2018-04-24 10:00)
DX: N13.6 Pyonephrosis (principal); E11.9 Type 2 diabetes mellitus without complications; I25.10 Atherosclerotic heart disease of native coronary artery without angina pectoris; I11.0 Hypertensive heart disease with heart failure; I50.9 Heart failure, unspecified; E78.00 Pure hypercholesterolemia, unspecified; E03.9 Hypothyroidism, unspecified; K21.9 Gastro-esophageal reflux disease without esophagitis; R79.1 Abnormal coagulation profile; F17.220 Nicotine dependence, chewing tobacco, uncomplicated; I25.2 Old myocardial infarction; Z79.899 Other long term (current) drug therapy; Z79.01 Long term (current) use of anticoagulants; Z79.82 Long term (current) use of aspirin; Z95.5 Presence of coronary angioplasty implant and graft; Z95.810 Presence of automatic (implantable) cardiac defibrillator
CPT/HCPCS: 36415; 71045; 74177; 74420; 80048; 80053; 81001; 82962; 83690; 83880; 85025; 85027; 85610; 87086; 910; 93005; 93010; 96374; 96375; 99285; C1769; G0378; J0696; J1170; J1644; J1940; J2250; J2550; J2704; J3010; J3490; J7030

== ENCOUNTER 2018-05-20 10:08 | Day surgery (SDC) | payer MEDICARE, MEDICAID ==
[~2018-05-20 10:08] MED LIST: CEFTRIAXONE 1 GM/D5W RTU 1 GM/50 ML RTUPB IV PRN; NORMAL SALINE 1000 ML 1,000 ML IV PRN
[2018-05-20] MEDS ORDERED: FENTANYL CITRATE INJ/PF 100 MCG/2 ML AMPUL ONE ×2 (11:21)
[2018-05-20] MEDS ORDERED: PROPOFOL INJ 200 MG/20 ML VIAL IV ONE ×2 (11:21→12:30)
[2018-05-20] MEDS ORDERED: MIDAZOLAM 2 MG/2 ML INJ ONE (11:21)
[2018-05-20 11:30] LABS: INTERNATIONAL RATION (INR) 1.06; PROTHROMBIN TIME 14.3 SEC (11.4-15.4)
[2018-05-20 11:31] LABS: PARTIAL THROMBOPLASTIN TIME 31.4 SEC (23.5-35.8)
[2018-05-20] MEDS ORDERED: ONDANSETRON HCL INJ/PF 4 MG/2 ML SDV IV PRN (13:40)
[2018-05-20] MEDS ORDERED: ONDANSETRON HCL INJ/PF 4 MG/2 ML SDV ONE (13:41)
[2018-05-20] MEDS ORDERED: VECURONIUM BROMIDE INJ 10 MG VIAL IV ONE (13:41)
[2018-05-20] MEDS ORDERED: LIDOCAINE 2% INJ-PF (20 MG/ML) 2 ML AMPUL ONE (13:41)
[2018-05-20] MEDS ORDERED: DEXAMETHASONE SOD PHOSPHATE INJ 4 MG/1 ML VIAL ONE (13:41)
--- NOTE | 2018-05-20 13:41 | Operative Report ---
Operative Report DATE OF SURGERY: 05/20/18 PREOPERATIVE DIAGNOSIS: Left ureteral stent, left distal ureteral stone POSTOPERATIVE DIAGNOSIS: Left ureteral stent, no stone seen OPERATION: Anoscopy, removal of left ureteral stent, ureteroscopy, fluoroscopy under anesthesia SURGEON: MACK LEON II ANESTHESIA: Moderate Sedation TISSUE REMOVED OR ALTERED: Left ureteral stent ESTIMATED BLOOD LOSS: 0cc INTRAOPERATIVE FINDINGS: Possible stone identified on pre-procedure fluoroscopic examination however direct ureteroscopy 2 revealed no stone and a clear an open ureter PROCEDURE: The patient was taken to the cystoscopy suite and placed on the cystoscopy table. After adequate IV sedation, she was placed into the lithotomy position and prepped and draped in the usual sterile fashion. A 22 [place]i panendoscope was placed into the urethra and the left ureteral stent visualized. It was grasped with a grasping forceps and under fluoroscopic guidance was removed. The preop fluoroscopic image suggested a stone in the distal ureter below the level of the vessels. Once the stent was removed, the calcification present was less visible. Semirigid ureteroscopy was performed and care was taken to avoid strong irrigation. This was accomplished under fluoroscopic guidance. The stone was not seen within the lumen of the ureter where it was felt to be preoperatively. The ureteroscope was then gently passed under direct vision to the left UPJ and again no stone seen. The ureteroscope was removed. The cystoscope was then reinserted and no stone was seen within the bladder. The bladder was drained, the cystoscope removed, and the patient returned to PACU in satisfactory condition.
--- NOTE | 2018-05-20 15:14 | RADIOLOGY REPORT (SQ) ---
EXAM DESCRIPTION: NO CHG FLUORO; KUB/ABDOMEN (SINGLE VIEW) COMPLETED DATE/TIME: 05/20/2018 1:30 pm REASON FOR STUDY: CYSTO WITH LT STENT REMOVAL N20.1 CALCULUS OF URETER Z79.899 OTHER ELECTRONICS TECHNOLOGY DEPARTMENT CHAIR (CU RRENT) DRUG THERAPY Z79.01 ELECTRONICS TECHNOLOGY DEPARTMENT CHAIR (CURRENT) USE OF ANTICOAGULANTS COMPARISON: CT abdomen pelvis 04/24/2018 Retrograde study 04/24/2018 FLUOROSCOPY TIME: 57 seconds 2 digital radiographic images saved to PACS. TECHNIQUE: Intra-operative images acquired during surgical procedure to evaluate progress. NUMBER OF IMAGES: 2 digital radiographic images LIMITATIONS: None. FINDINGS: 2 digital cysto images are submitted. Initial film demonstrates a left-sided double-J ure teral stent. There is a 4 to 5 mm distal left ureteral stone projected over the leftward edge of the distal sacrum adjacent to the stent. Subsequent images demonstrate removal of the stent and stones. Contrast in the urinary bladder. Please see the operative report for further details IMPRESSION: Intra procedural imaging and fluoro. Left double-J stent and distal left ureteral stone removed. COMMENT: Quality ID [id number]: Final reports for procedures using fluoroscopy that document radiation exp osure indices, or exposure time and number of fluorographic images (if radiation exposure indices are not available) Please consult full operative report of the attending physician for description of the procedure. TECHNICAL DOCUMENTATION: JOB ID: [id number] [employer]- All Rights Reserved Reading location - IP/workstation name: [email or web address]
--- NOTE | 2018-05-20 15:14 | RADIOLOGY REPORT (SQ) ---
EXAM DESCRIPTION: NO CHG FLUORO; KUB/ABDOMEN (SINGLE VIEW) COMPLETED DATE/TIME: 05/20/2018 1:30 pm REASON FOR STUDY: CYSTO WITH LT STENT REMOVAL N20.1 CALCULUS OF URETER Z79.899 OTHER SWATCH PASTER (CU RRENT) DRUG THERAPY Z79.01 SWATCH PASTER (CURRENT) USE OF ANTICOAGULANTS COMPARISON: CT abdomen pelvis 04/24/2018 Retrograde study 04/24/2018 FLUOROSCOPY TIME: 57 seconds 2 digital radiographic images saved to PACS. TECHNIQUE: Intra-operative images acquired during surgical procedure to evaluate progress. NUMBER OF IMAGES: 2 digital radiographic images LIMITATIONS: None. FINDINGS: 2 digital cysto images are submitted. Initial film demonstrates a left-sided double-J ure teral stent. There is a 4 to 5 mm distal left ureteral stone projected over the leftward edge of the distal sacrum adjacent to the stent. Subsequent images demonstrate removal of the stent and stones. Contrast in the urinary bladder. Please see the operative report for further details IMPRESSION: Intra procedural imaging and fluoro. Left double-J stent and distal left ureteral stone removed. COMMENT: Quality ID [id number]: Final reports for procedures using fluoroscopy that document radiation exp osure indices, or exposure time and number of fluorographic images (if radiation exposure indices are not available) Please consult full operative report of the attending physician for description of the procedure. TECHNICAL DOCUMENTATION: JOB ID: [id number] [employer]- All Rights Reserved Reading location - IP/workstation name: [email or web address]
[2018-05-20 15:18] VITALS: BP 102/79
== END 2018-05-20 15:15 | disposition home or self-care (01) ==
LOC: OROUT 10:08
PROVIDERS: ATTEND Urology
DX: N20.1 Calculus of ureter (principal); Z46.6 Encounter for fitting and adjustment of urinary device; J45.909 Unspecified asthma, uncomplicated; I50.9 Heart failure, unspecified; E07.9 Disorder of thyroid, unspecified; E11.9 Type 2 diabetes mellitus without complications; M19.90 Unspecified osteoarthritis, unspecified site; I25.2 Old myocardial infarction; Z95.810 Presence of automatic (implantable) cardiac defibrillator; Z79.899 Other long term (current) drug therapy; Z79.01 Long term (current) use of anticoagulants; Z79.51 Long term (current) use of inhaled steroids
CPT/HCPCS: 52310; 36415; 82947; 84132; 85610; 85730; 74018; C1758; Q9967; J2250; J1100; J3010; J3490 ×2; J2405; J2704; J0696; 910